=== PATIENT | male | born 1970 | race Caucasian/White ===

== ENCOUNTER 2018-06-07 08:29 | Inpatient (IN) | payer MEDICARE ==
--- NOTE | 2018-06-04 07:47 | HP ---
HISTORY OF PRESENT ILLNESS: The patient is a 48-year-old male in otherwise good health who presented for evaluation for severe neck pain and left arm dysesthesias. His MRI revealed severe structural findings and kyphotic change with disk disease from C3-C6. Dr. Dolan, the patient discussed treatment options at length, and risks, benefits, and alternatives of C3-C6 anterior diskectomy and fusion. The patient understands and wishes to proceed. PAST MEDICAL HISTORY: Arthritis. PAST SURGICAL HISTORY: Denies any prior surgeries. Denies any prior hospitalizations. FAMILY HISTORY: Noncontributory. SOCIAL HISTORY: The patient is a smoker. He does not drink or use any drugs. MEDICATION LIST: Sety-wur-xsxaajm Aleve. ALLERGIES: He has no known drug allergies. REVIEW OF SYSTEMS: Per HPI. PHYSICAL EXAMINATION: NAD NCAT OP clear, normal voice Breathing comfortbaly, no evidence of dyspnea Moving all 4s, no focal weakness, no reflex assymetry, negative hoffmans, negative clonus AOX4, steady gait ASSESSMENT AND PLAN: C3-C6 ACDF. MTDD
[2018-06-04 11:41] VITALS: BMI 17.2
[2018-06-07] MEDS ORDERED: CEFAZOLIN/Water 2 GM/20 ML SYRINGE ONE (09:16)
[2018-06-07 09:20] LABS: Hemoglobin 15.8 g/dL (14.0-18.0); Mean Corpuscular HGB CONC 34.5 g/dL (32.0-36.0); Mean Corpuscular Hemoglobin 32.5 pg (27.0-31.0); Mean Corpuscular Volume 94.1 fL (78.0-98.0); Mean Platelet Volume 7.7 fL (7.4-10.4); Platelet Count 213 thou/uL (130-400); RBC Distribution Width 11.9 % (11.5-14.5); Red Blood Cell (RBC) Count 4.88 mill/uL (4.70-6.10); White Blood Cell (WBC) Count 8.1 thou/uL (4.8-10.8)
[2018-06-07 09:40] LABS: Anion Gap 11 mmol/L (10-20); BUN (Urea Nitrogen) 11 mg/dL (8.9-20.6); Calc. Creatinine Clearance 75 mL/min (70-130); Calcium 9.5 mg/dL (7.8-10.44); Carbon Dioxide 26 mmol/L (22-29); Chloride 105 mmol/L (98-107); Estimated GFR-MDRD 75; Glucose 90 mg/dL (70-105); Potassium 4.6 mmol/L (3.5-5.1); Sodium 137 mmol/L (136-145)
[2018-06-07] MEDS ORDERED: Sodium Chloride 0.9% 10 ML ONE (10:23)
[2018-06-07] MEDS ORDERED: Fentanyl 100 MCG/2 ML VIAL ONE ×5 (10:58→13:05)
[2018-06-07] MEDS ORDERED: Midazolam HCl 2 mg/2 ml Vial ONE (10:58)
[2018-06-07] MEDS ORDERED: Lidocaine 2% Jelly 5 ML TUBE ONE (11:04)
[2018-06-07] MEDS ORDERED: Dexamethasone 20 MG/5 ML VIAL ONE (12:01)
[2018-06-07] MEDS ORDERED: Lidocaine 1% PF 5 ML VIAL ONE (12:01)
[2018-06-07] MEDS ORDERED: PROPOFOL 200 MG/20 ML VIAL ONE (12:01)
[2018-06-07] MEDS ORDERED: Glycopyrrolate 0.2 MG/ML 5 ML SYRINGE ONE (12:01)
[2018-06-07] MEDS ORDERED: Ondansetron HCl/PF 4 MG/2 ML Vial ONE (12:01)
[2018-06-07] MEDS ORDERED: Ondansetron HCl/PF 4 MG/2 ML Vial IVP PRN ×2 (12:43→15:10)
[2018-06-07] MEDS ORDERED: Promethazine HCl 25 MG/ML VIAL SLOW IVP PRN (12:43)
[2018-06-07] MEDS ORDERED: HYDROmorphone 2 MG/ML VIAL SLOW IVP PRN (12:43)
[2018-06-07] MEDS ORDERED: Promethazine HCl 25 MG/ML VIAL IM PRN ×2 (12:43→15:03)
--- NOTE | 2018-06-07 12:55 | OP ---
DATE OF PROCEDURE: 06/07/2018 SURGEON: Ruperto Dolan M.D. COLLECTION ADVISOR: Naga Andino PA-C PROCEDURE: Anterior cervical diskectomy C3-C6, interbody arthrodesis, intravertebral biomechanical d evice, local morselized autograft, demineralized bone matrix, anterior titanium instrumentation C3-C6 . DESCRIPTION OF PROCEDURE: The patient was brought to the operating room, intubated. He was position ed supine in modest extension on a gel-filled donut. Incision was made in the right precervical area and dissecting medial to the sternocleidomastoid muscle we identified the anterior cervical spine an d our level was confirmed by x-ray. We debrided anterior osteophytes, placed distraction across the disc spaces, and completely debrided and decompressed the intravertebral discs. The bony endplates w ere then decorticated for the purpose of arthrodesis and appropriately sized intravertebral biomechan ical PEEK device was brought into the field, filled with demineralized bone matrix, local morselized autograft, and tapped into place securely at C3-4, C4-5 and C5-6. Next, an anterior plate was marina t in the field and secured to C3, C4, C5, and C6 using two 14 mm screws at each level. The wound was extensively irrigated, immaculate hemostasis was secured. The wound was closed in anatomic layers o shady a drain.
[2018-06-07] MEDS ORDERED: HYDROmorphone 0.5 MG/0.5 ML SYRINGE ONE ×2 (13:31→13:42)
[2018-06-07] MEDS ORDERED: Promethazine 25 MG TAB PO PRN (15:03)
[2018-06-07] MEDS ORDERED: diphenhydrAMINE 50 MG/ML VIAL IVP PRN (15:03)
[2018-06-07] MEDS ORDERED: traMADol HCl 50 MG TAB PO PRN ×2 (15:03)
[2018-06-07] MEDS ORDERED: HYDROcodone/Acetaminophen 10/325 mg Tablet PO PRN (15:03)
[2018-06-07] MEDS ORDERED: Milk Of Magnesia 30 ML UDCUP PO PRN (15:03)
[2018-06-07] MEDS ORDERED: tiZANidine HCl 4 MG TAB PO PRN (15:03)
[2018-06-07] MEDS ORDERED: Morphine 4 MG/ML Carpuject SLOW IVP PRN (15:03)
[2018-06-07] MEDS ORDERED: Mag-Al 1200 mg/1200 mg/30 ML UDCUP PO PRN (15:03)
[2018-06-07] MEDS ORDERED: diphenhydrAMINE 25 MG CAP PO PRN (15:03)
[2018-06-07] MEDS ORDERED: Promethazine HCl 12.5 MG SUPP PR PRN (15:03)
[2018-06-07] MEDS ORDERED: Acetaminophen/Codeine 30-300mg Tablet PO PRN (15:17)
[2018-06-07] MEDS ORDERED: Morphine 4 MG/ML VIAL SLOW IVP PRN (15:30)
[2018-06-07] MEDS: Sodium Chloride 0.9% 1,000 ML IV SCH (15:32)
[2018-06-07] MEDS: HYDROcodone/Acetaminophen 10/325 mg Tablet PO PRN (15:32)
[2018-06-07] MEDS: CEFAZOLIN/Water 2 GM/20 ML SYRINGE SLOW IVP SCH (18:16)
[2018-06-08] MEDS: HYDROcodone/Acetaminophen 10/325 mg Tablet PO PRN ×2 (01:01→07:26)
[2018-06-08] MEDS: CEFAZOLIN/Water 2 GM/20 ML SYRINGE SLOW IVP SCH (01:02)
[2018-06-08] MEDS: Sodium Chloride 0.9% 1,000 ML IV SCH (02:40)
--- NOTE | 2018-06-08 07:00 | DIS ---
DATE OF ADMISSION: 06/07/2018 DATE OF DISCHARGE: 06/08/2018 ATTENDING PHYSICIAN: Dr. Ruperto Dolan [facility] COURSE: The patient is a 48-year-old male status post C3-C6 ACDF for cervical spondylosis, who is postoperative day #1. He did very well overnight. His pain was well controlled with p.o. medications. He was also tolerating his diet well and voiding appropriately. He has been ambulatory throughout the department. His DINESH had minimal output, only 20 mL overnight. I am seeing the patient at the bedside. He is awake, alert, in no acute distress. He has free active range of motion of all extremities. No focal motor weakness, no reflex asymmetry. His dressing is dry and his incision is soft. We will plan to remove the DINESH drain this morning and dismiss the patient to home. I have discussed home care, precautions, and will plan to follow up with the patient in the office in 2 weeks. He has been provided with instructions and scripts for [place] and Zanaflex. LIZY
[2018-06-08 08:42] VITALS: BP 134/84; TEMP 97.6
== END 2018-06-08 12:30 | disposition home or self-care (01) | DRG 30 ==
LOC: SURG A 08:29 → SJJU 14:23
PROVIDERS: ADMIT Neurological Surgery; ATTEND Neurological Surgery
PROC: 0RB30ZZ Excision of Cervical Vertebral Disc, Open Approach (ICD-10-PCS; principal; 2018-06-07)
PROC: 0RG20A0 Fusion of 2 or more Cervical Vertebral Joints with Interbody Fusion Device, Anterior Approach, Anterior Column, Open Approach (ICD-10-PCS; 2018-06-07)
DX: M54.12 Radiculopathy, cervical region (principal); M47.892 Other spondylosis, cervical region; F17.200 Nicotine dependence, unspecified, uncomplicated; M19.90 Unspecified osteoarthritis, unspecified site
CPT/HCPCS: 36415; 76001; 80048; 85027; A4216; C1713; C1776; J1100; J1170; J2001; J2250; J2405; J2704; J3010; J3490